=== PATIENT | male | born 1975 | race Caucasian/White ===

== ENCOUNTER 2022-07-06 13:57 | Emergency (ER) | payer SELFPAY ==
[~2022-07-06] VITALS: Ht 177.8 cm; Wt 73.6 kg
[2022-07-06 14:44] VITALS: BP 138/98
[2022-07-06] MEDS ORDERED: PREDNISONE20 MG PO (15:43)
[2022-07-06] MEDS ORDERED: KETOROLAC10 MG PO (15:43)
== END 2022-07-06 16:00 | disposition home or self-care (01) ==
LOC: ED 13:57
DX: M79.89 Other specified soft tissue disorders (principal); F17.200 Nicotine dependence, unspecified, uncomplicated; Z28.311 Partially vaccinated for COVID-19
CPT/HCPCS: J7512

== ENCOUNTER 2024-07-07 17:56 | Emergency (ER) | payer SELFPAY ==
[~2024-07-07] VITALS: Ht 177.8 cm; Wt 68.3 kg
[~2024-07-07 17:56] MED LIST: KETOROLAC10 MG PO; PREDNISONE20 MG PO
[2024-07-07] MEDS ORDERED: CLINDAMYCIN 300MG PO (18:30)
[2024-07-07] MEDS ORDERED: Clindamycin 150 MG CAP PO ONE ×2 (18:30→18:45)
[2024-07-07 18:41] VITALS: BP 133/91
== END 2024-07-07 18:45 | disposition home or self-care (01) ==
LOC: ED 17:56
DX: K04.7 Periapical abscess without sinus (principal); K02.9 Dental caries, unspecified; Z88.0 Allergy status to penicillin